=== PATIENT | male | born 1990 | race Caucasian/White ===

== ENCOUNTER 2023-09-19 06:53 | Emergency (ER) | payer MEDICAID, SELFPAY ==
[2023-09-19 07:12] VITALS: BP 131/71; PULSE 98; RESP 18; TEMP 37.2; O2SAT 98; BMI 23.0
--- NOTE | 2023-09-19 07:19 | ED_ITS ---
HPI - Eye Problem General Chief complaint: Eye Problems Stated complaint: eye infection Time Seen by Provider: 09/19/23 07:05 Source: patient Mode of arrival: ambulatory Limitations: no limitations History of Present Illness HPI Narrative: 33 yo male with no sig PMH wears eyeglasses has not used contact lens in a a while noted swelling to the nose and rash 3 days ago and then it progressed to R eye area over the past 2 days. He has no fevers. He denies vision changes. He did have chicken pox as a child. MD chief complaint: eye pain, eye redness and other (rash on face) Onset (ago): day(s) (3) Onset description: gradual Duration: constant Location: right eye Eye Symptoms: redness, foreign body sensation and discharge Place: home Mechanism: other (started with rash on nose) Severity: moderate If Pain, Quality: burning Context: other Associated symptoms: headache Treatments Prior to Arrival: none Related Data Previous Rx's Medication Instructions Recorded cephalexin 500 mg capsule 500 mg PO QID 7 days #28 caps 09/19/23 erythromycin 5 mg/gram (0.5 %) eye 0.5 inch ophthalmic-Right BID #3.5 09/19/23 ointment grams gabapentin 100 mg capsule 100 mg PO TID 10 days #30 caps 09/19/23 prednisone 20 mg tablet 40 mg (2 x 20 mg) PO DAILY 4 days 09/19/23 #8 tabs valacyclovir 1 gram tablet 1,000 mg PO TID 7 days #21 tabs 09/19/23 Allergies Allergy/AdvReac Type Severity Reaction Status Date / Time No Known Allergies Allergy Unverified 07/19/23 12:15 Review of Systems Review of Systems: Constitutional : No Fever, No Chills, No Fatigue ENT/Mouth : No sore throat, No Rhinorrhea Eyes: pos Eye Pain, No Swelling, pos Redness Cardiovascular : No Chest Pain, No SOB, No Dyspnea on Exertion Respiratory : No Cough, No Sputum Gastrointestinal : No Nausea, No Vomiting, No Diarrhea, No abdominal Pain Genitourinary : No Dysuria, No Urinary Frequency, No Hematuria, Musculoskeletal : No joint pain, No Myalgias, No Joint Swelling Skin : No Skin Lesions, pos rash Neuro : No Weakness, No Numbness, No Dizziness, positive Headache Psych : No Anxiety/Panic, No Depression All other systems reviewed and are negative PMFSH Past Medical History Attestation statement: The following information was validated with the patient. Source: old records reviewed Medical History No pertinent past medical history Social History Social History (Updated 09/19/23 @ 07:31 by Guillermina Fall DO) Patient Tobacco Use Status: Never used Tobacco Smoked in Last 30 Days: No Advance Directives: No Advance Directives Information Provided: No Physical Exam Vital Signs: Vital Signs: Last Vital Signs Temp 98.9 F 09/19/23 07:12 Pulse 98 09/19/23 07:12 Resp 18 09/19/23 07:12 BP 131/71 09/19/23 07:12 Pulse Ox 98 09/19/23 07:12 O2 Del Method Room Air 09/19/23 07:12 BMI result Body Mass Index 23.0 Appearance: Alert. Oriented X3. No acute distress. Eyes: Pupils equal, round and reactive to light. R eye 20/25 L eye 20/20 corrected, R periorbital area there is swelling and redness with vesicles from nose streaking to forehead with periorbital edema. No pain with EOM eye is not proptotic. Mild photophobia. On salmon lamp exam there is small uptake linear line not classic dendritic branches coming off at 8 o clock position to the pupil. there is a cluster on the inner area between eye and nose that is more dark and has scant purulence to it but no alix abscess ENT: Pharynx normal. Neck: Normal inspection. Neck supple. CVS: Normal heart rate and rhythm. Pulses normal. Respiratory: No respiratory distress. Breath sounds normal. Abdomen: Soft and nontender. Skin: Skin warm and dry. Normal skin color. Normal skin turgor. Extremities: No lower extremity edema. No calf ttp Neuro: Oriented X 3. No motor deficit. No sensory deficit. Medications Administered Discontinued Medications Generic Name Dose Route Start Last Admin Trade Name Armandoq PRN Reason Stop Dose Admin Fluorescein Sodium 1 strip 09/19/23 07:13 09/19/23 07:25 Fluorescein Sodium Strip EYE-RIGHT 09/19/23 07:14 1 strip ONCE ONE Administration Prednisone 40 mg 09/19/23 07:29 09/19/23 07:31 Prednisone 20 Mg Tablet PO 09/19/23 07:30 40 mg ONCE ONE Administration Tetracaine HCl 1 drop 09/19/23 07:13 09/19/23 07:25 Tetracaine Hcl/Pf 0.5% Oph Madhavi 4 Ml Drops EYE-RIGHT 09/19/23 07:14 1 drop ONCE ONE Administration Valacyclovir HCl 1,000 mg 09/19/23 07:13 09/19/23 07:26 Valacyclovir Hcl 1,000 Mg Tablet PO 09/19/23 07:14 1,000 mg ONCE ONE Administration Medical Decision Making Medical Decision Making MDM Narrative: 33 yo male with hx of chickenpox in the past he notes vesicles to the nose now with increased redness and vesicles extending to R side of face involving R eye area x 3 days. there is a small uptake on the eye that is not classic for dendritic branch but there is something on exam - he has no sig change in vision. He has no proptosis no pain with EOMi. The vesicles have a darked patch on the inside of the eye with some mild purulence noted but no alix abscess will need valtrex, steroids, gabapentin and oral cephalexin will also discuss with ophtho given he has no eye doctor. 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 Does not need emergent visit today can follow up in 24 hours. Prescription Management I considered prescription management with: Pain Medication, Antiviral and Antibiotic Discharge Plan Discharge Clinical Impression: Shingles Qualifiers: Herpes zoster complications: with ocular involvement Herpes zoster ocular complication detail: unspecified herpes zoster eye disease Qualified Code(s): B02.30 - Zoster ocular disease, unspecified Cellulitis Qualifiers: Site of cellulitis: face Qualified Code(s): L03.211 - Cellulitis of face Patient Disposition: Home, Self-Care Instructions: Shingles (ED), Cellulitis (ED) Additional Instructions: take all medications you need to see an eye doctor as soon as possible return for vision loss, more facial swelling or drainage, pain with eye movements or any other concerns no contact lens for the next month Prescriptions: New prednisone 20 mg tablet 40 mg PO DAILY 4 Days Qty: 8 0RF erythromycin 5 mg/gram (0.5 %) ointment 0.5 inch ophthalmic-Right BID Qty: 3.5 0RF valacyclovir 1 gram tablet 1,000 mg PO TID 7 Days Qty: 21 0RF gabapentin 100 mg capsule 100 mg PO TID 10 Days Qty: 30 0RF cephalexin 500 mg capsule 500 mg PO QID 7 Days Qty: 28 0RF Referrals: Mich Martins [Physician] - (call tomorrow to schedule appointment)
[2023-09-19] MEDS: Tetracaine HCl/PF 0.5% Oph Sol 4 ML DROPS 1 DROP EYE-RIGHT (07:25)
[2023-09-19] MEDS: Fluorescein Sodium STRIP 1 STRIP EYE-RIGHT (07:25)
[2023-09-19] MEDS: valACYclovir HCL 1,000 MG TABLET 1000 MG PO (07:26)
[2023-09-19] MEDS: predniSONE 20 MG TABLET 40 MG PO (07:31)
[2023-09-19 08:51] VITALS: BP 106/68; PULSE 76; RESP 18; TEMP 37.1; O2SAT 98
== END 2023-09-19 09:19 | disposition home or self-care (01) ==
PROVIDERS: Emergency Provider Emergency Medicine
DX: L03.211 Cellulitis of face (principal); B02.30 Zoster ocular disease, unspecified
CPT/HCPCS: 99283; 99284